=== PATIENT | female | born 1960 | race Hispanic/Latino ===

== ENCOUNTER 2020-09-20 13:40 | Emergency (ER) | payer OTHER ==
[~2020-09-20] VITALS: Ht 149.9 cm; Wt 59.4 kg
== END 2020-09-20 15:15 | disposition home or self-care (01) ==
LOC: ER 14:36
DX: M62.830 Muscle spasm of back (principal); I10 Essential (primary) hypertension; E11.9 Type 2 diabetes mellitus without complications; E78.5 Hyperlipidemia, unspecified
CPT/HCPCS: 99282